=== PATIENT | female | born 1945 | race Caucasian/White ===

== ENCOUNTER 2016-07-13 15:31 | Emergency (ER) | payer MEDICAID ==
[~2016-07-13] VITALS: Ht 170.2 cm; Wt 106.6 kg
[2016-07-13 16:42] VITALS: BP 130/85
[2016-07-13] MEDS ORDERED: MORPHINE SULFATE 4 MG/ML SYRG IM ONE (17:00)
[2016-07-13] MEDS ORDERED: ONDANSETRON HCL 4 MG/2 ML VIAL IM ONE (17:00)
== END 2016-07-13 17:38 | disposition home or self-care (01) ==
LOC: ER 15:42
DX: G89.29 Other chronic pain (principal); M54.5 Low back pain; G89.4 Chronic pain syndrome
CPT/HCPCS: 96372; 99284; J2270; J2405

== ENCOUNTER 2016-08-04 11:49 | Emergency (ER) | payer MEDICAID, OTHER ==
[~2016-08-04] VITALS: Ht 167.6 cm; Wt 97.5 kg
[2016-08-04 11:58] VITALS: BP 150/101
[2016-08-04] MEDS ORDERED: KETOROLAC TROMETH 60MG/2ML VIAL IM ONE (13:30)
== END 2016-08-04 13:54 | disposition home or self-care (01) ==
LOC: ER 11:59
DX: G89.29 Other chronic pain (principal); M54.5 Low back pain; F17.210 Nicotine dependence, cigarettes, uncomplicated; F12.10 Cannabis abuse, uncomplicated; M35.00 Sjogren syndrome, unspecified; M19.90 Unspecified osteoarthritis, unspecified site; Z88.0 Allergy status to penicillin
CPT/HCPCS: 96372; 99283; J1885